=== PATIENT | male | born 2005 | race African-American/Black ===

== ENCOUNTER 2025-04-22 18:03 | Emergency (ER) | payer OTHER, SELFPAY ==
[2025-04-22 18:38] VITALS: BP 149/87; PULSE 77; RESP 16; TEMP 37; O2SAT 98; BMI 27.1
--- NOTE | 2025-04-22 19:06 | ED_ITS ---
Discharge Plan Disposition Patient Disposition: Home, Self-Care Condition: Good Referrals Follow up/Referrals: Provider,Referral, MD [Primary Care Provider, Medical] - See instructions Activity Restrictions/Add. Instructions Additional Instructions/Restrictions: Keep the wound clean, dry. Do not scrub vigorously. Use gentle soap and water. If you develop any signs of infection, such as increased redness, swelling, pus draining from the wound, fever, or if you become concerned for your help for any reason, return to the emergency department for evaluation. The stitches will need to come out in 7 to 10 days. This can be done at your primary care office, urgent treatment center or here in the emergency department. Clinical Impressions Clinical Impression: Laceration Instructions Patient Instructions: DI for Laceration Repair Print Language Print Language: French Discharge ED Provider: Rancho Lemus General Adult HPI General Chief complaint: Wound/Laceration Stated complaint: AO 04-20 carry a washer,right hand cut Time Seen by Provider: 04/22/25 19:01 Mode of Arrival: Ambulatory Source of Information: Patient Description of Symptoms (Recalled from ER Triage Doc. by RN): pt to the ED with laceration to his right middle and ring finger. pt stated he was moving a washer and a piece of metal cut it. pt has positive sensation and movement of fingers and bleeding is controlled at this time History of Present Illness HPI narrative: Salo Lopez is a 20-year-old healthy male who presents to the emergency department for complaints of laceration to his right 3rd and 4th fingers. Patient states that he was carrying a washer earlier and it cut these 2 fingers. He denies any muscle weakness. He does not know when his last tetanus shot was. He states that he has some numbness directly around the laceration but otherwise has no other injuries or complaints. Related Data Allergies Allergy/AdvReac Type Severity Reaction Status Date / Time adhesive AdvReac Unknown Verified 04/22/25 19:23 allergy reaction adhesive tape AdvReac Unknown Verified 04/22/25 19:23 allergy reaction PFSH [facility] Disclaimer: The information contained in this section may have been updated after the patient was seen, as this information can be updated by other users. Social History Smoking Status: Smoker, status unknown alcohol intake: never current occupational status: employed Travel in the last 8 weeks?: None ROS Obtained: Yes Systems reviewed as appropriate & no additional complaints except as documented Physical Exam General General appearance: alert and in no apparent distress Head Head exam: atraumatic Eye Eye exam: Present normal appearance ENT ENT exam: Present normal external ear exam Neck Neck exam: Present full ROM Chest Chest inspection: Present symmetric chest wall rise Respiratory Respiratory exam: Present normal lung sounds bilaterally; Absent respiratory distress Cardiovascular Cardiovascular exam: Present regular rate and normal rhythm Abdominal Exam Abdominal exam: Present soft; Absent tenderness or guarding exam: Present deferred Extremities Exam Extremities exam: Present normal inspection Expanded Upper Extremity Exam Right: Hand L/R front image: 2 1. laceration (3cm) 2. laceration (2cm) 3. laceration (superficial 1cm laceration) Back Exam Back exam: Present normal inspection Neurological Exam Neurological exam: Present alert and oriented X3 Psychiatric Psychiatric exam: Present normal affect Skin Skin exam: Present warm and dry Medical Decision Making Medical Records Screening: Per USPSTF and CDC recommendations, given the prevalence of disease in our region, it is our hospital?s policy to screen for HIV and viral Hepatitis for all patients aged 18 and over and those with ongoing risk factors. Heri Inquiry Pt receiving controlled substance: No Vital Signs: 04/22/25 18:38 04/22/25 20:01 Temperature 98.6 F 98.6 F Temperature Source Oral Oral Pulse Rate 77 Pulse Rate [Left Radial] 77 Respiratory Rate 16 16 Blood Pressure 149/87 H Blood Pressure [Right Arm] 149/87 H Blood Pressure Mean [Right Arm] 107 Blood Pressure Source Automatic Cuff Blood Pressure Source [Right Arm] Automatic Cuff Blood Pressure Position Sitting Blood Pressure Position [Right Arm] Sitting 02 Sat by Pulse Oximetry 98 Oxygen Delivery Method Room Air Room Air Orders (Tests/Meds): ED MEDICATIONS Discontinued Medications Generic Name Dose Route Start Last Admin Trade Name Freq PRN Reason Stop Dose Admin Lidocaine HCl 20 ml 04/22/25 19:05 04/22/25 19:54 Lidocaine 1% 20ml Mdv IJ 04/22/25 19:06 20 ml ONCE ONE Administration Tetanus/Reduced Diphtheria/Acell Pertussis 0.5 ml 04/22/25 19:05 04/22/25 19:47 Tet/Diphth/Pert-Adult 0.5ml Syringe IM 04/22/25 19:06 0.5 ml .ONCE ONE Administration Medical Decision Narrative: Salo Lopez is a 20-year-old healthy male who presents to the emergency department for complaints of laceration to his right 3rd and 4th fingers. Patient states that he was carrying a washer earlier and it cut these 2 fingers. He denies any muscle weakness. He does not know when his last tetanus shot was. He states that he has some numbness directly around the laceration but otherwise has no other injuries or complaints. On arrival, patient is hemodynamically stable, in no acute distress. Physical exam, stated above, reveals a well-appearing male. He has linear lacerations over the palmar aspect of his right 2nd, 3rd and 4th digits. Flexor and extension function intact at all joint spaces. No significant bleeding at this time. No retained foreign bodies. X-ray imaging was considered, however I have low concern for fracture or retained foreign body. Patient's wound was irrigated thoroughly with sterile water and Hibiclens. He is in agreement to proceed with laceration repair. Patient preferred local anesthetic as opposed to a digital nerve block. Local lidocaine was injected to the wounds with adequate anesthesia obtained. Patient's wounds were repaired using 5-0 nylon sutures. See procedure note for details. The wound on patient's second digit was repaired using Dermabond. Patient is now appropriate for discharge. Return precautions were given. All questions were answered. He demonstrated understanding and was in agreement with this plan. He was then discharged from the ED in stable condition. Procedures Laceration Laceration 1: Site: finger Side (If applicable): right Size (cm): 3 Description: linear Depth: simple, single layer Local Anesthetic: lidocaine 1% Amount of anesthesia used (mL): 1 Pre-repair: irrigated extensively Skin layer closed with: nylon Size (cm): 5-0 Number of sutures: 4 Technique: simple, interrupted Laceration 2: Site: finger Side (If applicable): right Size (cm): 2 Description: linear Depth: simple, single layer Local Anesthetic: lidocaine 1% Amount of anesthesia used (mL): 1 Pre-repair: irrigated extensively Skin layer closed with: nylon Size (cm): 5-0 Number of sutures: 1 Technique: simple, interrupted Laceration 3: Site: finger Side (If applicable): right Size (cm): 1 Description: linear Depth: simple, single layer Pre-repair: irrigated extensively Skin layer closed with: Dermabond Critical Care Critical Care Time Critical Care Time: No
[2025-04-22] MEDS: TET/DIPHTH/PERT-ADULT 0.5ML SYRINGE 0.5 ML IM (19:47)
[2025-04-22] MEDS: LIDOCAINE 1% 20ML MDV 20 ML IJ (19:54)
[2025-04-22 20:01] VITALS: BP 149/87; PULSE 77; RESP 16; TEMP 37; O2SAT 98
--- NOTE | 2025-04-24 14:43 | PC.NURSE ---
Patient called and asked about an antibiotic ointment he thought had been sent to a pharmacy. discharge instructions from note and and packet went over with patient on keeping area clean and dry, but no antibiotic cream had been sent to pharmacy. stated he hadn't gotten his finger wet since he was seen and it still had dried blood on finger so could not tell if it was red. stated some of the sutures had come out and glue had peeled some, finger had come open slightly. did not believe he had any pus or drainage but did note his finger was more swollen than others. instructed patient that with his concerns that he should consider having it looked at to rule out complications. voiced understanding.
== END 2025-04-22 20:02 | disposition home or self-care (01) ==
PROVIDERS: Emergency Provider Student in an Organized Health Care Education/Training Program
DX: S61.210A Laceration without foreign body of right index finger without damage to nail, initial encounter (principal); S61.212A Laceration without foreign body of right middle finger without damage to nail, initial encounter; S61.214A Laceration without foreign body of right ring finger without damage to nail, initial encounter; W26.8XXA Contact with other sharp object(s), not elsewhere classified, initial encounter
CPT/HCPCS: 12002; 90471; 90715; 99283; 99284; J2003